=== PATIENT | female | born 1980 | race Caucasian/White ===

== ENCOUNTER → 2016-09-06 | Outpatient (CLI) | payer OTHER | LOC: HPND 12:40 | PROVIDERS: ATTEND Obstetrics & Gynecology | DX: Z36 Encounter for antenatal screening of mother (principal) | CPT/HCPCS: 36416; 76813 ==

== ENCOUNTER → 2017-05-03 | Day surgery (SDC) | payer OTHER ==
[~2017-05-03] MED LIST: BUPIVACAINE HCL PF 0.5% 10 ML VIAL ONE; KETOROLAC TROMETHAMINE 30 MG/ML (IVP) VIAL IV PUSH ONE; KETOROLAC TROMETHAMINE 30 MG/ML (IVP) VIAL ONE; MIDAZOLAM HCL 2 MG/2 ML VIAL ONE; ONDANSETRON HCL 4 MG/2 ML VIAL IV PUSH ONE; PROPOFOL 200 MG/20 ML AMP IV ONE; ceFAZolin 2 GM PREMIX 50 ML ONE
--- NOTE | 2017-05-03 16:29 | TN ---
cc: WENDI LIU DATE OF SURGERY 05/03/2017 PRINCIPAL DIAGNOSIS Symptomatic left axillary breast tissue. POSTOPERATIVE DIAGNOSIS Symptomatic left axillary breast tissue. PROCEDURE PERFORMED Excision of left axillary breast tissue. SURGEON Wendi Liu MD ANESTHESIA General via LMA device. INDICATION The patient is a 37-year-old female who has had axillary breast tissue since puberty. She is recently and the left axillary breast tissue became extremely engorged and painful. The pain has improved somewhat but the area is still swollen and tender and she desires excision. She now presents for the procedure. FINDINGS AT THE TIME OF SURGERY Left axillary breast tissue was identified with no adenopathy. PROCEDURE PERFORMED After informed consent was obtained and site verification was performed, the patient was brought to the major operating room where she underwent general anesthesia via LMA device. The left axillary area was prepped and draped in sterile fashion. An incision was marked in the left axillary area and anesthetized with 0.5% Marcaine with epinephrine. Sharp dissection was then performed to remove the overlying skin and subcutaneous left axillary breast tissue. The excision was completed with electrocautery and the specimen was oriented with the skin anterior and one short suture superiorly. The specimen was sent for permanent pathologic evaluation and electrocautery was used to obtain hemostasis. The wound was closed using interrupted 3-0 Vicryl subcutaneous sutures and a 4-0 Monocryl subcuticular suture. Steri-Strips and a sterile dressing were applied. The patient tolerated procedure well with an estimated blood loss of 100 mL and she was extubated in the operating room and brought to the recovery room in good condition. MD SHYANNE [place]/CHUY /3:49 PM /4:04 PM
== END | disposition home or self-care (01) ==
LOC: ESDC 11:30
PROVIDERS: ATTEND Surgery
DX: Q83.1 Accessory breast (principal)
CPT/HCPCS: 00400; 19120; 88305; J0690; J1885; J2250; J2405; J3010; 88307